=== PATIENT | female | born 1980 | race Asian ===

== ENCOUNTER → 2020-09-08 | Outpatient (CLI) | payer OTHER ==
[~2020-09-08] MED LIST: IBUP80TA PO; MAPA500T2 PO; PERCOCET PO; PREN29TA4 PO
--- NOTE | 2020-09-08 10:34 | REP ---
INDICATION: ANATOMY COMPARISON: None. TECHNIQUE: Transabdominal obstetrical ultrasound with color Doppler evaluation. FINDINGS: Examination demonstrates a single live intrauterine in variable presentation. motion is identified by technologist. Placenta is noted anterior and grade 1 without evidence for placenta previa or abruption. Amniotic fluid volume is normal. Cervix measures 4.2 cm in length and appears closed.. Gestational age by current measurements 17 weeks 2 days with SANDRA 02/14/2021. FHR equals 132 beats per minute. BPD: 3.7 cm seventeen weeks 1 day HC: 13.7 cm 17 weeks 1 day AC: 11.8 cm 17 weeks 4 days FL: 2.5 cm 17 weeks 4 days HL: 2.3 cm 17 weeks 1 day HC/AC: 1.16 Estimated weight 199 grams (58thpercentile). Anatomical assessment demonstrates normal structures including cranium, choroid plexus, cavum, cerebellum/posterior fossa, facial features, lungs, ventricular outflow tracts, diaphragm, stomach, cord insertion/three-vessel cord, kidneys/bladder, spine, and extremities. IMPRESSION: Single live intrauterine in variable presentation demonstrating appropriate estimated weight. Limited evaluation of the four-chamber heart. Remainder of the anatomical assessment is complete and normal. <Electronically signed by Woody Saenz > 09/08/20 [id number]
== END ==
LOC: M WHC 08:18
PROVIDERS: ATTEND Advanced Practice Midwife
DX: Z34.92 Encounter for supervision of normal pregnancy, unspecified, second trimester (principal); Z3A.17 17 weeks gestation of pregnancy

== ENCOUNTER → 2020-09-27 | Outpatient (CLI) | payer OTHER ==
[2020-09-27 10:59] LABS: HEMATOCRIT 38.3 % (36.0-47.0); HEMOGLOBIN 12.3 g/dl (12.0-15.5); MEAN CORPUSCULAR HEMOGLOBIN 29.4 pg (27.0-33.0); MEAN CORPUSCULAR HGB CONC 32.1 g/dl (32.0-36.5); MEAN CORPUSCULAR VOLUME 91.6 fl (80.0-96.0); PLATELET COUNT, AUTOMATED 212 10^3/uL (150-450); RED BLOOD COUNT 4.18 10^6/uL (4.00-5.40)
[2020-09-27 12:23] LABS: CHLAMYDIA DNA AMPLIFICATION NEGATIVE (NEGATIVE); GC DNA AMPLIFICATION NEGATIVE (NEGATIVE)
[2020-09-27 12:57] LABS: HEPATITIS C VIRUS ABY INDEX 0.1 INDEX (<0.8); HIV 1&2 SCREEN CENTAUR NEGATIVE (NEGATIVE)
== END ==
LOC: M WHC 07:56
PROVIDERS: ATTEND Obstetrics & Gynecology
DX: Z34.92 Encounter for supervision of normal pregnancy, unspecified, second trimester (principal); Z3A.20 20 weeks gestation of pregnancy

== ENCOUNTER → 2020-10-05 | Outpatient (CLI) | payer OTHER ==
--- NOTE | 2020-10-05 09:32 | REP ---
INDICATION: F/U ANATOMY. "Known SANDRA" February 14, 2021, expected gestational age 21 weeks 1 day. COMPARISON: Comparison sonography 08 September 2020.. TECHNIQUE: Transabdominal obstetric sonography. FINDINGS: Scanning through the gravid uterus demonstrates a viable single intrauterine gestation in cephalic lie. motion is observed and heart rate is recorded at 152 beats per minute. A anteroseptal and 0 placenta is seen, grade 1, without evidence of placenta previa. Closed cervical length is measured at 4.0 cm transabdominally. No extrauterine abnormality is observed. Amniotic fluid is subjectively normal. No abnormality is observed. The following anatomic structures are identified today and felt to be unremarkable: cranium and intracranial contents, facial profile, four-chamber heart with left and right ventricular outflow tract views, left-sided stomach, abdominal wall cord insertion, right and left kidney, urinary bladder, three-vessel cord. In conjunction with the prior study, anatomic survey is felt to be complete.. Biometry chart: BPD 5.1 cm, 21 weeks 3 days Head circumference 18.5 cm, 20 weeks 6 days Abdominal circumference 17.1 cm, 22 weeks 0 days Femur length 3.4 cm, 20 weeks 5 days Humeral length 3.2 cm, 20 weeks 4 days HC AC ratio normal 1.09 Cephalic index normal 0.77 Estimated weight 421 g, 0 lb 14 oz, 59th percentile for 21 weeks 1 day IMPRESSION: Viable single intrauterine gestation at 21 weeks 1 days by today's composite sonographic criteria. SANDRA by today's sonography February 14, 2021. No complication identified. Appropriate interval growth. Anatomic survey is felt to be complete in conjunction with the prior study. <Electronically signed by Jimmie Pace > 10/05/20 [id number]
== END ==
LOC: M WHC 08:30
PROVIDERS: ATTEND Obstetrics & Gynecology
DX: Z34.92 Encounter for supervision of normal pregnancy, unspecified, second trimester (principal); Z3A.21 21 weeks gestation of pregnancy

== ENCOUNTER → 2020-10-18 | Outpatient (REF) | payer OTHER ==
[2020-10-18 14:53] LABS: ALBUMIN 2.7 GM/DL (3.2-5.2); ALT/SGPT 35 U/L (12-78); BILIRUBIN,TOTAL 0.5 MG/DL (0.2-1.0); BLOOD UREA NITROGEN 8 MG/DL (7-18); CALCIUM LEVEL 8.9 MG/DL (8.5-10.1); CARBON DIOXIDE LEVEL 28 MEQ/L (21-32); CHLORIDE LEVEL 105 MEQ/L (98-107); CREATININE FOR GFR 0.52 MG/DL (0.55-1.30); GLOMERULAR FILTRATION RATE > 60.0 (>60); GLUCOSE, FASTING 78 MG/DL (70-100); POTASSIUM SERUM 4.5 MEQ/L (3.5-5.1); SODIUM LEVEL 138 MEQ/L (136-145); TOTAL PROTEIN 6.6 GM/DL (6.4-8.2)
== END ==
LOC: M SFHCPLAZ 10:01
PROVIDERS: ATTEND Internal Medicine Infectious Disease
DX: B18.1 Chronic viral hepatitis B without delta-agent (principal)

== ENCOUNTER → 2020-10-25 | Outpatient (REF) | payer OTHER | LOC: M PLALAB 03:14 | PROVIDERS: ATTEND Obstetrics & Gynecology | DX: Z3A.24 24 weeks gestation of pregnancy (principal) ==

== ENCOUNTER 2020-10-29 11:48 | Observation (INO) | payer OTHER ==
[~2020-10-29] VITALS: Ht 157.5 cm; Wt 66.3 kg
--- NOTE | 2020-10-29 13:14 | HPEPDOC ---
General Date of Admission Date of Service: Oct 29, 2020 Attending Physician: TYRESE BAZAN MD Chief Complaint The patient is a 39-year-old female admitted with a reason for visit of Pyelonephritis. Source: Recording Clerk Exam Limitations: Language barrier History of Present Illness Subjective: HPI limited by language barrier as pt speaks Mandarin. Had lead custodian #[id number] assisting with translation at 11:19 am today (10/29/20). Much of her past medical history has been obtained by chart review. Pt is a 39 year old female who is at 24 4/7 weeks gestation with PMH of chronic hepatitis B (being treated by ID with Tenofovir) who presented to the outpatient OB floor due to dysuria, flank pain, and fever. Also admits to headache, chills, subjective fever. She states that her dysuria initially started one week ago and her headache, chills, and subjective fever started two days ago on 10/27/20. When her dysuria initially started, she presented to her OB and was prescribed abx. Denies any prior hx of UTI or pyelonephritis. She also reports one episode of 2 days of dark colored vaginal discharge one month ago that has since resolved. Denies any hematuria. Hospitalist team was consulted for admission due to sepsis and need for IV abx and further work up. In regards to her chronic hepatitis B, pt is being seen by Dr. Quintana, [facility]. She is being treated with Tenofovir disoproxil fumarate 300 mg PO daily. Her last visit to ID was on 10/18/20 at which time her hep B DNA viral load was 119,000,000. She has 2 other children who are both hep B negative and born via . Home Medications Scheduled Cefdinir (Cefdinir) 300 Mg Capsule, 1 CAP PO BID, (Reported) Tenofovir Disoproxil Fumarate (Viread) 300 Mg Tablet, 1 TAB PO DAILY, (Reported) Scheduled PRN Acetaminophen (Acetaminophen) 500 Mg Tablet, 1 TAB PO Q8HP PRN for PAIN OR FEVER Allergies Coded Allergies: shellfish derived (Verified Allergy, Intermediate, 10/29/20) can eat the meat out of shell fish but can not touch shell allergic reaction swollen lips without resp issues Past Medical History Medical History Chronic hepatitis B, being treated with Tenofovir. Surgical History x2 Social History * Smoker: Denies Alcohol: Denies Drugs: denies A-FIB/CHADSVASC A-FIB History Current/History of A-Fib/PAF?: No Review of Systems Constitutional: Reports: Chills, Fever (subjective) ENT: Reports: Head Aches Gastrointestinal: Denies: Abdominal Pain Genitourinary: Reports: Dysuria, Other Symptoms (+Flank pain); Denies: Hematuria Physical Examination General Exam: Positive: Alert, Cooperative, No Acute Distress Eye Exam: Positive: Conjunctiva & lids normal, EOMI; Negative: Sclera icteric ENT Exam: Positive: Atraumatic Chest Exam: Positive: Clear to auscultation, Normal air movement; Negative: Rales, Rhonchi Heart Exam: Positive: Rate Normal, Regular Rhythm, Normal S1, Normal S2; Negative: Gallops, Murmurs, Rubs Abdomen Exam: Positive: Normal bowel sounds; Negative: Tenderness Neuro Exam: Positive: Normal Speech, Cranial Nerves 3-12 NL Psych Exam: Positive: Mental status NL, Mood NL Vital Signs See below. Last vitals done on 10/29/20 at 8:40 am. Temp 96.8, pulse 108, respiratory rate 22, BP 113/53. Assessment/Plan Assessment/Plan: Pt is a 39 year old female who is at 24 4/7 weeks gestation with PMH of chronic hepatitis B (being treated by ID with Tenofovir) who presented to the outpatient OB floor due to dysuria, flank pain, and fever. She was found to have fever and elevated lactic acid so she was admitted for observation for UTI vs pyelonephritis tx with IV abx. #Sepsis 2/2 UTI vs pyelonephritis - Pt UA suggests UTI. Possible pyelonephritis suspected due to reported flank pain. Pt is more predisposed to UTI/pyelonephritis due to her current 2nd trimester . - According to initial intake vitals, pt meets severe sepsis SIRS criteria due to temp >100.4, HR >90, RR>20, and lactic acidosis with lactic acid level at 2.2. Her 4 hr f/u lactic acid is 0.9. Her lactic acidosis is not very concerning as she has many risk factors that could elevate her lactic acid levels (see below). - qSOFA score is 1 due to respiratory rate >=22. Low risk. - Will start pt on Ceftriaxone 1 gm IV Q24H. Pt was start Ceftriaxone here by OB and reports improvement in sx so will continue Ceftriaxone. - Will continue pt on IV normal saline. - Will continue to monitor CBC and BMP. - Pt being given acetaminophen 650 mg PO for fever and pain. #UTI vs pyelonephritis - Pt UA suggests UTI. Possible pyelonephritis suspected due to reported flank pain. Pt is more predisposed to UTI/pyelonephritis due to her current 2nd trimester . - Pt has been started on Ceftriaxone 1 gm IV Q24H. #Lactic acidosis - Lactic acid elevated at 2.2. 4hr f/u was 0.9. - Elevated lactic acid is to be expected in this patient due to her hx of chronic hep B infection. This would cause her liver to have decreased ability to process toxic metabolites such as lactic acid. Pt is also on Tenofovir for tx of hep B and Tenofovir can cause lactic acidosis. - Will continue to hydrate pt with normal saline. #Chronic hepatitis B infection - Pt is following up with ID, Dr. Quintana, in regards to chronic hepatitis B. She is currently being treated with Tenofovir. - Will have pt f/u with Dr. Quintana after discharge. #DVT prophylaxis - Teds and sequentials. Disposition: Pt is receiving IV ceftriaxone 1 gm IV. Anticipate discharge in 24 hrs pending clinical improvement. Plan / VTE VTE Prophylaxis Ordered?: Yes (Teds and sequentials) GME ATTESTATION GME ATTESTATION My faculty preceptor for this patient encounter was physically present during the encounter and was fully available. All aspects of the patient interview, examination, medical decision making process, and medical care plan development were reviewed and approved by the faculty preceptor. The faculty preceptor is aware and concurs with the plan as stated in the body of this note and will attest to such by his/her cosignature. ATTENDING NOTE I, Tyrese Bazan MD, have independently examined this patient and performed my own physical exam, as well as reviewed the documentation and edited where nece ssary. I have discussed in detail with the resident / student the findings and plan of treatment as documented by the resident / student and edited their note. I agree with their findings and treatment plan and have edited their documentation. Nancy LO OMS-3 Oct 29, 2020 13:14 TYRESE BAZAN MD Nov 02, 2020 09:28
[2020-10-29 13:35] VITALS: BP 112/60
[2020-10-29] MEDS ORDERED: ACETAMINOPHEN TAB 650MG DOSE (2X325MG) PO PRN (14:00)
[2020-10-29] MEDS: NS 1,000 ML IV SCH ×2 (14:00→19:42)
[2020-10-29] MEDS ORDERED: TENO30TAB PO (14:46)
[2020-10-29] MEDS ORDERED: CEFD1CAP8 PO (14:46)
[2020-10-29 16:00] VITALS: BP 102/48
[2020-10-29 20:00] VITALS: BP 98/51
[2020-10-29] MEDS: ACETAMINOPHEN 650MG ER TAB (TYLENOL ARTHRITIS) PO PRN (22:52)
[2020-10-29 23:58] VITALS: BP 91/52
[2020-10-30] VITALS (10 sets, daily range): BP systolic 85–104; BP diastolic 43–59
[2020-10-30] MEDS ORDERED: NS 1,000 ML IV ONE (00:55)
[2020-10-30] MEDS ORDERED: cefTRIAXone SOD 1 GM in D5W MINI-BAG PLUS 50 ML IV SCH (02:00)
[2020-10-30] MEDS: NS 1,000 ML IV SCH (02:20)
[2020-10-30 08:47] LABS: MEAN CORPUSCULAR HEMOGLOBIN 29.8 pg (27.0-33.0); MEAN CORPUSCULAR HGB CONC 32.1 g/dl (32.0-36.5); MEAN CORPUSCULAR VOLUME 92.7 fl (80.0-96.0); PLATELET COUNT, AUTOMATED 139 10^3/uL (150-450); RED BLOOD COUNT 3.02 10^6/uL (4.00-5.40); WHITE BLOOD COUNT 5.9 10^3/uL (4.0-10.0)
[2020-10-30] MEDS: ACETAMINOPHEN 650MG ER TAB (TYLENOL ARTHRITIS) PO PRN ×2 (09:01→20:39)
[2020-10-30] MEDS ORDERED: MAALOX 30 ML SUSP *UDC PO PRN (09:10)
[2020-10-30] MEDS ORDERED: ONDANSETRON 4MG/2ML VIAL IV PRN (09:10)
[2020-10-30] MEDS ORDERED: NS 1,000 ML IV SCH (09:15)
[2020-10-30] MEDS ORDERED: PILL CUTTER 1 EACH XX PRN (09:20)
[2020-10-30 09:23] LABS: BLOOD UREA NITROGEN 5 MG/DL (7-18); CALCIUM LEVEL 6.8 MG/DL (8.5-10.1); CARBON DIOXIDE LEVEL 22 MEQ/L (21-32); CHLORIDE LEVEL 111 MEQ/L (98-107); CREATININE FOR GFR 0.46 MG/DL (0.55-1.30); GLOMERULAR FILTRATION RATE > 60.0 (>60); GLUCOSE, FASTING 95 MG/DL (70-100); POTASSIUM SERUM 3.2 MEQ/L (3.5-5.1); SODIUM LEVEL 142 MEQ/L (136-145)
[2020-10-30] MEDS: FAMOTIDINE 20 MG TAB PO SCH ×2 (10:04→20:39)
[2020-10-30] MEDS: D5W/0.45% SODIUM CHLORIDE 1,000 ML IV SCH ×2 (11:17→20:38)
[2020-10-30] MEDS ORDERED: POTASSIUM CHLORIDE 10 MEQ SR TABLET PO ONE (11:30)
--- NOTE | 2020-10-30 11:46 | IPNPDOC ---
Date Seen The patient was seen on 10/30/20. Progress Note SUBJECTIVE: Patient was seen and examined this morning. Bulgarian is the patients second language and therefore an lang interpreter #[id number] was contacted for assistance in patient communication. Overnight the patient was noted to be febrile with a Tmax of 101.1. Additionally she was noted to have worsening right flank pain with nausea and vomiting. Patient states that she did initially feel better yesterday however feels nauseas and has chills this morning OBJECTIVE PHYSICAL EXAMINATION: VITAL SIGNS: Please see below. GENERAL: Awake, alert, and oriented. Does not appear to be in acute distress. Is ill appearing. HEENT: Atraumatic, normocephalic. Eyes are nonicteric. Trachea is midline. Mucou s membranes are pink and moist CARDIOVASCULAR: Normal S1, S2. Tachycardic rate. Regular rhythm. No clicks, rubs, or murmurs RESPIRATORY: Clear vesicular breath sounds bilaterally. Slightly tachypneic. No wheezes, rhonchi, or rales. Symmetric chest expansion. ABDOMINAL: Soft, otherwise no palpable masses. Midepigastric tenderness. No rebound tenderness or guarding. Right flank tenderness/pain. No suprapubic tenderness EXTREMITIES: No edema. Full and equal pulses in bilateral upper and lower extremities NEUROLOGICAL: No focal neurological deficits PSYCHOLOGICAL: Mood and affect appear appropriate LABORATORY DATA, IMAGING STUDIES, MICROBIOLOGY: Please see below. DVT prophylaxis ordered?: Mechanical ASSESSMENT AND PLAN: Patient is a 39 year old at 24 4/7 weeks gestation with past medical history significant for hepatitis B under current treatment with Tenofovir by Dr. Quintana who presented to outpatient OB with complaint of dysuria, flank pain, and fever. Patient was seen on 10/27/20 by her [facility] at which point she apparently had a UA and culture performed. She was started on Cefdinir and discharged home. On 10/29/20 patient noted continued urinary discomfort, fever, and flank pain. Patient was subsequently admitted for pyelonephritis. PROBLEMS: 1. UTI/Pyelonephritis in 2nd Trimester of -Patient had U/A and culture performed on 10/27/20 and was started on Cefdinir outpatient. She had stated that she took one dose and then presented to [facility] with worsening flank pain, fevers, and dysuria. -Will need to obtain culture data from 10/27/20 outpatient visit. U/A and culture performed at [facility] on 10/29/20 was negative for any significant growth. Unlikely that patient failed outpatient therapy with Cefdinir as she had only taken one dose. Additionally culture performed here was already negative -Will continue Rocephin. Will increase to 2 grams. -Continue IV fluid as patient has had decreased oral intake and has had emesis. Will change to D5 1/2 normal saline given hyperchloremia and hypernatremia. -Patient currently on extended release Tylenol. 2. Nausea and Vomiting -Likely multifactorial. Given her acute illness with pyelonephritis in the setting of . Additionally patient states that she does have acid reflux. -Will add Zofran prn for nausea. Pepcid and Maalox as needed for acid reflux. -Clear liquids diet until able to tolerate more 3. Hypokalemia -Likely secondary to emesis with poor oral intake. Will monitor and replete prn 4. 2nd Trimester -Patient is currently being followed by [facility] 5. Hepatitis B infection -History of chronic hepatitis B. She did appear to have elevated Hep B titers on 10/28, her last visit with Dr. Quintana. She is being managed with Tenofovir 6. DVT prophylaxis -TEDs and Sequentials DISPOSITION: Patient has remained febrile. Plan to transition to oral antibi otics and discharge once patient is afebrile for 24 hours. Anticipate D/C in 24- 48 hours VS, I&O, 24H, Fishbone Vital Signs/I&O Vital Signs Date Time Temp Pulse Resp B/P (MAP) Pulse Ox O2 Delivery O2 Flow Rate FiO2 10/30/20 06:44 97.6 109 18 104/58 (73) 97 Room Air I&O- Last 24 Hours up to 6 AM 10/30/20 05:59 Intake Total 3440 ml Output Total 1775 ml Balance 1665 ml Laboratory Data 24H LABS Laboratory Tests 2 10/30/20 07:29: Nucleated Red Blood Cells % (auto) 0.0, Anion Gap 9, Glomerular Filtration Rate > 60.0, Calcium Level 6.8L CBC/BMP Laboratory Tests 10/30/20 07:29 GME ATTESTATION GME ATTESTATION My faculty preceptor for this patient encounter was physically present during the encounter and was fully available. All aspects of the patient interview, examination, medical decision making process, and medical care plan development were reviewed and approved by the faculty preceptor. The faculty preceptor is aware and concurs with the plan as stated in the body of this note and will attest to such by his/her cosignature. ATTENDING NOTE I have seen and examined the patient. I agree with the findings and plan or care as documented in the residents note. MARY REINOSO DO Oct 30, 2020 11:46 ROMAN PAINTING MD Nov 15, 2020 22:45
[2020-10-30] MEDS ORDERED: cefTRIAXone SOD 2 GM in D5W MINI-BAG PLUS 50 ML IV SCH (14:00)
[2020-10-31] MEDS: D5W/0.45% SODIUM CHLORIDE 1,000 ML IV SCH (04:27)
[2020-10-31 06:14] VITALS: BP 95/59
[2020-10-31 07:09] LABS: HEMATOCRIT 26.4 % (36.0-47.0); HEMOGLOBIN 8.5 g/dl (12.0-15.5); MEAN CORPUSCULAR HEMOGLOBIN 29.9 pg (27.0-33.0); MEAN CORPUSCULAR HGB CONC 32.2 g/dl (32.0-36.5); PLATELET COUNT, AUTOMATED 149 10^3/uL (150-450); RED BLOOD COUNT 2.84 10^6/uL (4.00-5.40); WHITE BLOOD COUNT 6.1 10^3/uL (4.0-10.0)
[2020-10-31 07:33] LABS: BLOOD UREA NITROGEN 4 MG/DL (7-18); CALCIUM LEVEL 7.1 MG/DL (8.5-10.1); CARBON DIOXIDE LEVEL 24 MEQ/L (21-32); CHLORIDE LEVEL 108 MEQ/L (98-107); CREATININE FOR GFR 0.45 MG/DL (0.55-1.30); GLOMERULAR FILTRATION RATE > 60.0 (>60); GLUCOSE, FASTING 97 MG/DL (70-100); SODIUM LEVEL 140 MEQ/L (136-145)
[2020-10-31] MEDS: FAMOTIDINE 20 MG TAB PO SCH (09:17)
[2020-10-31] MEDS ORDERED: POTASSIUM CHLORIDE 10 MEQ SR TABLET PO ONE (10:00)
[2020-10-31] MEDS ORDERED: ACET-683 PO (10:16)
--- NOTE | 2020-10-31 11:20 | DS.PDOC ---
Discharge Summary General Date of Admission Oct 29, 2020 at 13:35 Date of Discharge 10/31/20 Discharge Summary PROCEDURES PERFORMED DURING STAY: [None]. DISCHARGE DIAGNOSES: Pyelonephritis in second trimester of Sepsis Hypokalemia Chronic hepatitis B infection. COMPLICATIONS/CHIEF COMPLAINT: Pyelonephritis. HOSPITAL COURSE: This is a 39 year old female who is at 24 4/7 weeks gestation with PMH of chronic hepatitis B (being treated by ID with Tenofovir) who presented to the outpatient OB floor due to dysuria, flank pain, and fever. She stated that her dysuria initially started one week ago and her headache, chills, and subjective fever started on 10/27/20. Patient had U/A and culture performed on 10/27/20 and was started on Cefdinir outpatient. She had stated that she took one dose and then presented to [facility] with worsening flank pain, fevers, and dysuria. She presented to L&D at [facility] on 10/28/20. She was febrile to 102, with elevated lactate and dirty UA. She was felt to be septic so hospitalist was consulted for admission. Renal US was suggestive of Pyelonephritis, UA was dir ty. However urine culture did not show any growth. She was treated with ceftriaxone with improvement of symptoms. She is to continue Cefdinir as outpatient. DISCHARGE MEDICATIONS: Please see below. ALLERGIES: Please see below. PHYSICAL EXAMINATION ON DISCHARGE: VITAL SIGNS: Please see below. GENERAL: Awake, alert, comfortable sitting up in bed. HEENT: NC/AT most mucous membranes NECK: Supple, no lymphadenopathy CARDIOVASCULAR EXAMINATION: S1, s2 regular, no murmur or gallop RESPIRATORY EXAMINATION: Bilateral vesicular breath sounds ABDOMINAL EXAMINATION: Soft, nontender, No CVA tenderness, movements felt. EXTREMITIES: No edema LABORATORY DATA: Please see below. IMAGING: FINDINGS: The right kidney measures 11.9 x 4.7 x 4.5 cm. The left kidney measures 10.7 x 5.3 x 4.8 cm. The kidneys are normal size. Renal cortical echogenicity is normal bilaterally. There are are no calculi on the right or the left. There is no hydronephrosis on the right or the left. There are no solid or cystic renal masses on the right or the left. No evidence of renal abscess on the right or the left. Bladder: The bladder is incompletely distended. We are unable to demonstrate ureteral jets with color Doppler ultrasound. However, there is no hydronephrosis. IMPRESSION: There is no evidence of renal mass or abscess. There is no pararenal fluid collection. There is no hydronephrosis. No renal calculus. Essentially negative ultrasound of the kidneys. The bladder is incompletely distended and cannot be further evaluated. Is noted that the patient is . The heart rate is 150 beats per minute. ACTIVITY: [As tolerated]. DIET: Regular DISCHARGE PLAN: Home DISCHARGE INSTRUCTIONS: Follow up with Obstetrics in 1 week DISCHARGE CONDITION: [Stable]. TIME SPENT ON DISCHARGE: 35 minutes. Vital Signs/I&Os Vital Signs Date Time Temp Pulse Resp B/P (MAP) Pulse Ox O2 Delivery O2 Flow Rate FiO2 10/31/20 06:14 97.9 95 18 95/59 (71) 99 Room Air I&O- Last 24 Hours up to 6 AM 10/31/20 06:00 Intake Total 785 ml Output Total 875 ml Balance -90 ml Laboratory Data Labs 24H Laboratory Tests 2 10/31/20 06:47: Nucleated Red Blood Cells % (auto) 0.0, Anion Gap 8, Glomerular Filtration Rate > 60.0, Calcium Level 7.1L CBC/BMP Laboratory Tests 10/31/20 06:47 Discharge Medications Scheduled Cefdinir (Cefdinir) 300 Mg Capsule, 1 CAP PO BID, (Reported) Tenofovir Disoproxil Fumarate (Viread) 300 Mg Tablet, 1 TAB PO DAILY, (Reported) Scheduled PRN Acetaminophen (Acetaminophen) 500 Mg Tablet, 1 TAB PO Q8HP PRN for PAIN OR FEVER Allergies Coded Allergies: shellfish derived (Verified Allergy, Intermediate, 10/29/20) can eat the meat out of shell fish but can not touch shell allergic reaction swollen lips without resp issues ROMAN PAINTING MD Oct 31, 2020 11:20
== END 2020-10-31 12:00 | disposition home or self-care (01) ==
LOC: M PED 13:35 → M MS5PR 10-30 13:50
PROVIDERS: ADMIT Internal Medicine; ATTEND Internal Medicine
DX: O23.02 Infections of kidney in pregnancy, second trimester (principal); O23.42 Unspecified infection of urinary tract in pregnancy, second trimester; O99.282 Endocrine, nutritional and metabolic diseases complicating pregnancy, second trimester; O98.412 Viral hepatitis complicating pregnancy, second trimester; Z79.899 Other long term (current) drug therapy; Z91.013 Allergy to seafood; Z3A.24 24 weeks gestation of pregnancy; E87.6 Hypokalemia
CPT/HCPCS: 36415; 76775; 80048; 80053; 81001; 83605; 85025; 85027; 87040; 87086; 96361; 96365; 96366; 96375; J0696; J2405; U0002

== ENCOUNTER → 2020-11-22 | Outpatient (REF) | payer OTHER ==
[~2020-11-22] MED LIST changes: +ACET-683 PO; +CEFD1CAP8 PO; +TENO30TAB PO
[2020-11-22 14:20] LABS: HEMATOCRIT 35.6 % (36.0-47.0); HEMOGLOBIN 11.5 g/dl (12.0-15.5); MEAN CORPUSCULAR HEMOGLOBIN 30.2 pg (27.0-33.0); MEAN CORPUSCULAR HGB CONC 32.3 g/dl (32.0-36.5); MEAN CORPUSCULAR VOLUME 93.4 fl (80.0-96.0); PLATELET COUNT, AUTOMATED 186 10^3/uL (150-450); RED BLOOD COUNT 3.81 10^6/uL (4.00-5.40); WHITE BLOOD COUNT 5.9 10^3/uL (4.0-10.0)
== END ==
LOC: M PLALAB 08:01
PROVIDERS: ATTEND Obstetrics & Gynecology
DX: Z34.93 Encounter for supervision of normal pregnancy, unspecified, third trimester (principal); Z3A.28 28 weeks gestation of pregnancy

== ENCOUNTER → 2020-11-29 | Outpatient (CLI) | payer OTHER | LOC: M LAB 08:39 | PROVIDERS: ATTEND Obstetrics & Gynecology | DX: O99.810 Abnormal glucose complicating pregnancy (principal) ==

== ENCOUNTER → 2020-12-06 | Outpatient (REF) | payer OTHER ==
[2020-12-06 14:31] LABS: ALBUMIN 2.7 GM/DL (3.2-5.2); BILIRUBIN,DIRECT 0.1 MG/DL (0.0-0.2); BILIRUBIN,TOTAL 0.5 MG/DL (0.2-1.0); TOTAL PROTEIN 6.8 GM/DL (6.4-8.2)
[2020-12-07 20:07] LABS: HBV 4940 IU/mL (.); log10 HBV IU/mL 3.694 (.)
== END ==
LOC: M SFHCPLAZ 10:39
PROVIDERS: ATTEND Internal Medicine Infectious Disease
DX: O98.413 Viral hepatitis complicating pregnancy, third trimester (principal); Z3A.00 Weeks of gestation of pregnancy not specified

== ENCOUNTER → 2021-01-05 | Outpatient (REF) | payer OTHER ==
[2021-01-05 13:35] LABS: APPEARANCE, URINE HAZY (CLEAR); BACTERIA, URINE AUTO 1+ (NEGATIVE); BILIRUBIN, URINE AUTO NEGATIVE (NEGATIVE); BLOOD, URINE BLOOD 2+ (NEGATIVE); COLOR, URINE YELLOW (YELLOW); GLUCOSE, URINE (UA) AUTO NEGATIVE (NEGATIVE); KETONE, URINE AUTO NEGATIVE (NEGATIVE); LEUKOCYTE ESTERASE, URINE AUTO NEGATIVE (NEGATIVE); MUCUS, URINE SMALL (NEGATIVE); NITRITE, URINE AUTO NEGATIVE (NEGATIVE); PROTEIN, URINE AUTO NEGATIVE (NEGATIVE); RBC, URINE AUTO 5 /HPF (0-3); SQUAMOUS EPITHELIAL CELL UR AU 10 /HPF (0-6); UROBILINOGEN, URINE AUTO 0.2 mg/dL (0.0-2.0); WBC, URINE AUTO 1 /HPF (0-3)
== END ==
LOC: M SFHCWAGY 12:49
PROVIDERS: ATTEND Advanced Practice Midwife
DX: R30.0 Dysuria (principal)

== ENCOUNTER → 2021-01-17 | Outpatient (REF) | payer OTHER ==
[2021-01-17 13:41] LABS: BASO % 0.2 % (0.0-1.0); EOS % 0.5 % (0.0-3.0); LYMPH # 1.2 10^3/uL (1.5-5.0); LYMPH % 22.1 % (24.0-44.0); MEAN CORPUSCULAR HEMOGLOBIN 29.1 pg (27.0-33.0); MEAN CORPUSCULAR HGB CONC 31.6 g/dl (32.0-36.5); MONO # 0.4 10^3/uL (0.0-0.8); MONO % 6.3 % (2.0-8.0); NEUTROPHILS # 3.9 10^3/uL (1.5-8.5); NEUTROPHILS % 70.4 % (36.0-66.0); PLATELET COUNT, AUTOMATED 186 10^3/uL (150-450); RED BLOOD COUNT 4.13 10^6/uL (4.00-5.40); WHITE BLOOD COUNT 5.5 10^3/uL (4.0-10.0)
[2021-01-17 14:20] LABS: ALBUMIN 2.7 GM/DL (3.2-5.2); ALT/SGPT 18 U/L (12-78); BILIRUBIN,TOTAL 0.6 MG/DL (0.2-1.0); BLOOD UREA NITROGEN 10 MG/DL (7-18); CALCIUM LEVEL 8.5 MG/DL (8.5-10.1); CARBON DIOXIDE LEVEL 25 MEQ/L (21-32); CHLORIDE LEVEL 106 MEQ/L (98-107); CREATININE FOR GFR 0.46 MG/DL (0.55-1.30); GLOMERULAR FILTRATION RATE > 60.0 (>60); GLUCOSE, FASTING 83 MG/DL (70-100); SODIUM LEVEL 138 MEQ/L (136-145); TOTAL PROTEIN 6.8 GM/DL (6.4-8.2)
[2021-01-19 15:08] LABS: HBV 350 IU/mL (.); log10 HBV IU/mL 2.544 (.)
== END ==
LOC: M SFHCPLAZ 10:40
PROVIDERS: ATTEND Internal Medicine Infectious Disease
DX: B18.1 Chronic viral hepatitis B without delta-agent (principal)

== ENCOUNTER → 2021-01-18 | Outpatient (REF) | payer OTHER | LOC: M SFHCWAGY 16:50 | PROVIDERS: ATTEND Specialist | DX: Z34.83 Encounter for supervision of other normal pregnancy, third trimester (principal) ==

== ENCOUNTER → 2021-02-03 | Outpatient (CLI) | payer OTHER ==
[~2021-02-03] MED LIST changes: +GNP28TAB2; +[UNRECOGNIZED DRUG - REMARK]
== END ==
LOC: M LABSMTC 09:36
PROVIDERS: ATTEND Anesthesiology
DX: Z01.818 Encounter for other preprocedural examination (principal); Z11.52 Encounter for screening for COVID-19

== ENCOUNTER 2021-02-08 07:30 | Inpatient (IN) | payer OTHER ==
[~2021-02-08] VITALS: Ht 160 cm; Wt 73.4 kg
[2021-02-08] VITALS (7 sets, daily range): BP systolic 117–134; BP diastolic 65–77
[2021-02-08] MEDS ORDERED: COLA100C5 PO (08:09)
[2021-02-08 08:33] LABS: HEMATOCRIT 37.7 % (36.0-47.0); HEMOGLOBIN 12.2 g/dl (12.0-15.5); MEAN CORPUSCULAR HEMOGLOBIN 29.5 pg (27.0-33.0); MEAN CORPUSCULAR HGB CONC 32.4 g/dl (32.0-36.5); MEAN CORPUSCULAR VOLUME 91.3 fl (80.0-96.0); PLATELET COUNT, AUTOMATED 179 10^3/uL (150-450); RED BLOOD COUNT 4.13 10^6/uL (4.00-5.40); WHITE BLOOD COUNT 4.6 10^3/uL (4.0-10.0)
[2021-02-08] MEDS ORDERED: LR 1,000 ML IV SCH ×2 (08:40→11:45)
[2021-02-08] MEDS: PRENATAL VITAMINS CHEWABLE TABLET PO SCH (09:00)
[2021-02-08] MEDS ORDERED: BICITRA 30ML SOLN UDC PO ONE (09:00)
[2021-02-08] MEDS ORDERED: ceFAZolin SOD 2 GM in IV 1 EA IV ONE (09:00)
[2021-02-08] MEDS ORDERED: LACTATED RINGER'S 1000 ML IV ONE (09:00)
[2021-02-08] MEDS ORDERED: MORPHINE PRES-FREE INJ 10 MG/10 ML VIAL (J2274) As Ordered ONE (09:13)
[2021-02-08] MEDS ORDERED: OXYTOCIN INJ 10 UNITS/ML VIAL (J2590) As Ordered ONE (09:14)
[2021-02-08] MEDS ORDERED: NALBUPHINE HCL 10 MG/ML AMP (J2300) IV PRN (10:20)
[2021-02-08] MEDS ORDERED: diphenhydrAMINE 50MG/ML VIAL (J1200) IV PRN (10:20)
[2021-02-08] MEDS ORDERED: NALOXONE INJ 0.4MG/1ML VIAL (J2310 PER 1MG) IV PRN ×2 (10:20)
[2021-02-08] MEDS ORDERED: METOCLOPRAMIDE INJ 10MG/2ML VIAL (J2765 PER 1) IV PRN ×2 (10:20→11:45)
[2021-02-08] MEDS ORDERED: ONDANSETRON 4MG/2ML VIAL As Ordered ONE (10:54)
[2021-02-08] MEDS ORDERED: dexameTHASONE 4 MG/ML 1ML VIAL (J1100 PER 1MG) As Ordered ONE (10:55)
[2021-02-08] MEDS ORDERED: KETOROLAC 60MG 2ML VIAL As Ordered ONE (10:55)
[2021-02-08] MEDS ORDERED: ePHEDrine SULFATE 25 MG/5 ML(5MG/ML) SYRINGE As Ordered ONE (10:59)
[2021-02-08] MEDS ORDERED: MEASLES,MUMPS,RUBELLA VACCINE INJ (MMR-II) (90707) SC SCH (11:10)
[2021-02-08] MEDS ORDERED: PERCOCET 5MG/325MG TAB PO PRN ×3 (11:10→11:45)
[2021-02-08] MEDS ORDERED: OXYTOCIN DRIP 30 UNITS in IV 1 EA IV SCH (11:10)
[2021-02-08] MEDS ORDERED: RHOGAM 300 MCG (1500 IU) INJ (J2790) IM SCH (11:10)
[2021-02-08] MEDS: LR 1,000 ML IV SCH ×2 (11:10→23:16)
[2021-02-08] MEDS ORDERED: SIMETHICONE 80MG CHEW TAB PO PRN (11:10)
[2021-02-08] MEDS ORDERED: ONDANSETRON 4MG/2ML VIAL IV PRN ×2 (11:10→11:45)
[2021-02-08] MEDS ORDERED: DOCUSATE SODIUM 100MG CAPSULE PO PRN (11:10)
--- NOTE | 2021-02-08 11:15 | ROOPDOC ---
[facility] Report Of Operation Report of Operation DATE OF PROCEDURE: 02/08/21 Report of operation Preoperative diagnosis:39 weeks ,prior x 2 Postoperative diagnosis: same Procedure: Repeat low transverse section. Surgeon: Brady Lynn M.D. Asst.: Rosalind Palacios MD EBL: 500 ml. Urine output: 100 mL's. Findings: 8 lbs. 4 oz. male infant, 's 7 and 9 g normal uterus, fallopian tubes, ovaries. Operative summary: Patient taken to the operating room where spinal anesthesia was induced. She was prepped draped sterile fashion in the supine position. A Alva catheter was placed. A Pfannenstiel skin incision was made with scalpel. Fascia was incised and extended bilaterally. The peritoneal cavity was entered. A Mobius retractor was placed. A bladder flap was created. A curvilinear incision was made in lower uterine segment until Clear fluid was noted. The incision was extended manually. The infant was delivered from the vertex position without difficulty. Cord was doubly clamped and cut. The infant was handed waiting nurses. The placenta was expressed. Uterus was closed with O-Vicryl in a running locked fashion. A second imbricating layer of Vicryl was placed. Peritoneum was closed with 2-0 Vicryl a running fashion. Fascia was closed with 0 Vicryl in running fashion. Skin was closed 4-0 Monocryl subcuticular sutures. Sponge, instrument and needle counts were correct. Rosalind Palacios MD, assisted with all aspects of the procedure. She helped closeeach layer of the incision and deliver the fetus. BRADY LYNN MD Feb 08, 2021 11:14
[2021-02-08] MEDS ORDERED: OXYTOCIN 30 UNITS IN 0.9% NaCl 500ML IV BAG (J2590) As Ordered ONE (11:40)
[2021-02-08] MEDS ORDERED: fentaNYL 100 MCG/2 ML INJECTION (J3010) IV PRN (11:45)
[2021-02-08] MEDS ORDERED: METHYLERGONOVINE MALEATE 0.2 MG/ML VIAL (J2210) IM ONE (16:50)
[2021-02-08] MEDS: KETOROLAC 30 MG/ML 1ML VIAL IV SCH ×2 (17:16→22:31)
[2021-02-09 02:00] VITALS: BP 100/65
[2021-02-09] MEDS: KETOROLAC 30 MG/ML 1ML VIAL IV SCH (04:45)
[2021-02-09 06:00] VITALS: BP 107/63
[2021-02-09 07:04] LABS: HEMATOCRIT 28.8 % (36.0-47.0); MEAN CORPUSCULAR HEMOGLOBIN 30.1 pg (27.0-33.0); MEAN CORPUSCULAR HGB CONC 32.3 g/dl (32.0-36.5); MEAN CORPUSCULAR VOLUME 93.2 fl (80.0-96.0); PLATELET COUNT, AUTOMATED 134 10^3/uL (150-450); RED BLOOD COUNT 3.09 10^6/uL (4.00-5.40); WHITE BLOOD COUNT 7.5 10^3/uL (4.0-10.0)
[2021-02-09 07:08] LABS: HEMOGLOBIN 9.3 g/dl (12.0-15.5)
[2021-02-09] MEDS: LR 1,000 ML IV SCH ×2 (07:27→16:08)
[2021-02-09] MEDS ORDERED: LR 500 ML IV ONE (08:20)
[2021-02-09] MEDS ORDERED: INFLUENZA QUADRIVALENT PF VACCINE 0.5ML SYRINGE IM ONE (09:00)
[2021-02-09] MEDS: PRENATAL VITAMINS CHEWABLE TABLET PO SCH (09:44)
[2021-02-09 10:29] VITALS: BP 104/64
--- NOTE | 2021-02-09 10:38 | IPNPDOC ---
Progress Note Date of Service: Feb 09, 2021 Day#: 1 Progress Note PPD/POD 1 SUBJECT: Hernandez is a 40yo [id number] s/p uncomplicated RLTCS on 02/08 for history of 2 prior sections, doing well /post-op day #1. She has been ambulating without lightheadedness, was unable to meet due to void last night so lemons replaced (urine appears dark this morning) and tolerating regular diet without n/v. Breast feeding without issue. Reports lochia is like a normal period. Pain well controlled. No f/c/n/v/CP/SOB. OBJECTIVE: VITAL SIGNS: Within normal limits, afebrile. Alert and oriented times three. Abdomen: Fundus firm at U-2. Soft, appropriately tender to palpation. Pressure dressing is clean/dry/intact without strikethrough. Extremities: no pain with palpation of calves Labs: pre-op H/H: 12.2/37.7 post-op H/H: 9.3/28.8 ASSESSMENT: Hernandez is a 40yo [id number] s/p uncomplicated RLTCS on 02/08 for history of 2 prior sections, doing well /post-op day #1 Vitals within normal limits, afebrile, hemodynamically stable with no evidence of infection. PLAN: 1. Routine /post-op care 2. Remove lemons 12hr after insertion (this afternoon) with 6hr due to void 3. 500ml LR IVF bolus ordered for dark appearing urine, continue maintenance IVF 4. Percocet and Motrin for pain. Colace for bowel regimen. 5. Encourage breast feeding and ambulation. 6. Regular diet 7. Possible discharge tomorrow if meeting all milestones 8. Remove pressure dressing later today and ok to shower Rosalind Palacios MD VS, I&O, 24H, Sanjiv Vital Signs/I&O Vital Signs Date Time Temp Pulse Resp B/P (MAP) Pulse Ox O2 Delivery O2 Flow Rate FiO2 02/09/21 06:00 97.5 78 17 107/63 (78) 97 Room Air I&O- Last 24 Hours up to 6 AM 02/09/21 06:00 Intake Total 4225 ml Output Total 2675 ml Balance 1550 ml Laboratory Data 24H LABS Laboratory Tests 2 02/09/21 06:46: Nucleated Red Blood Cells % (auto) 0.0 CBC/BMP Laboratory Tests 02/09/21 06:46 Rosalind Palacios MD Feb 09, 2021 10:38
[2021-02-09] MEDS: IBUPROFEN 800 MG TAB PO SCH ×2 (12:48→20:43)
[2021-02-09 14:00] VITALS: BP 134/60
[2021-02-09 17:53] VITALS: BP 115/76
[2021-02-09 22:00] VITALS: BP 138/78
[2021-02-10 02:00] VITALS: BP 130/74
[2021-02-10] MEDS: IBUPROFEN 800 MG TAB PO SCH ×2 (05:01→12:31)
[2021-02-10 06:00] VITALS: BP 133/82
[2021-02-10] MEDS ORDERED: OXYC1TAB23 PO (06:44)
[2021-02-10] MEDS ORDERED: IBUP80TA PO (06:44)
--- NOTE | 2021-02-10 06:50 | DS.PDOC ---
Discharge Summary General Date of Admission Feb 08, 2021 at 07:30 Date of Discharge Feb 10, 2021 Discharge Summary PROCEDURES PERFORMED DURING STAY: section. ADMITTING DIAGNOSES: 1. 39 weeks, section x2. DISCHARGE DIAGNOSES: 1. Same. COMPLICATIONS/CHIEF COMPLAINT: Previous Section. HISTORY OF PRESENT ILLNESS: 40-year-old G3, P2 female at 39 weeks gestation presents for repeat section. She has a history of 2 prior cesareans.. HOSPITAL COURSE: 40-year-old G3, P2 female 39 weeks gestation presents for repeat section. She has a history of 2 prior sections. On February 08, 2021 she underwent repeat section. There were no complications. Her postoperative course was unremarkable. She had adequate return of bladder and bowel function. She was deemed stable for discharge on postop day #2. DISCHARGE MEDICATIONS: Please see below. ALLERGIES: Please see below. PHYSICAL EXAMINATION ON DISCHARGE: VITAL SIGNS: Please see below. GENERAL: No apparent distress HEENT: NCAT NECK: Within normal limits CARDIOVASCULAR EXAMINATION: RRR RESPIRATORY EXAMINATION: Clear to auscultation ABDOMINAL EXAMINATION: Nontender, fundus firm, dressing clean dry intact EXTREMITIES: Nontender LABORATORY DATA: Please see below. PROGNOSIS: Good ACTIVITY: As tolerated. DIET: Regular DISCHARGE PLAN: Home DISPOSITION: . DISCHARGE INSTRUCTIONS: 1. Discharge home today 2. Instructions reviewed 3. Pain management ordered 4. Follow-up office 2 weeks DISCHARGE CONDITION: Stable. TIME SPENT ON DISCHARGE: Greater than 10 minutes. Vital Signs/I&Os Vital Signs Date Time Temp Pulse Resp B/P (MAP) Pulse Ox O2 Delivery O2 Flow Rate FiO2 02/10/21 06:00 97.9 63 18 133/82 (99) 02/10/21 02:00 99 Room Air I&O- Last 24 Hours up to 6 AM 02/10/21 06:00 Intake Total 500 ml Output Total 1900 ml Balance -1400 ml Discharge Medications Scheduled Docusate Sodium (Colace) 100 Mg Capsule, 1 CAP PO DAILY, (Reported) Ibuprofen (Ibuprofen) 800 Mg Tablet, 800 MG PO Q8H Tenofovir Disoproxil Fumarate (Viread) 300 Mg Tablet, 1 TAB PO DAILY, (Reported) Scheduled PRN Oxycodone HCl/Acetaminophen (Oxycodone-Acetaminophen 5-325) 1 Each Tablet, 1 TAB PO TIDP PRN for pain Miscellaneous Medications Pnv No.95/Ferrous Fum/Folic AC ( Vitamins Tablet) 1 Each Tablet, (Reported) Allergies Coded Allergies: shellfish derived (Verified Allergy, Intermediate, 01/25/21) can eat the meat out of shell fish but can not touch shell allergic reaction swollen lips without resp issues BRADY LYNN MD Feb 10, 2021 06:50
[2021-02-10] MEDS: PRENATAL VITAMINS CHEWABLE TABLET PO SCH (08:03)
== END 2021-02-10 14:00 | disposition home or self-care (01) | DRG 540 ==
LOC: M LDI 07:30 → M OBS 12:49
PROVIDERS: ADMIT Specialist; ATTEND Specialist
PROC: 10D00Z1 Extraction of Products of Conception, Low, Open Approach (ICD-10-PCS; principal; 2021-02-08 09:30)
DX: O34.211 Maternal care for low transverse scar from previous cesarean delivery (principal); O09.523 Supervision of elderly multigravida, third trimester; Z37.0 Single live birth; Z3A.39 39 weeks gestation of pregnancy; Z91.013 Allergy to seafood

== ENCOUNTER → 2021-05-02 | Outpatient (CLI) | payer OTHER ==
[~2021-05-02] MED LIST changes: +COLA100C5 PO; +OXYC1TAB23 PO
[2021-05-02 12:57] LABS: ALBUMIN 3.8 GM/DL (3.2-5.2); ALT/SGPT 132 U/L (12-78); BILIRUBIN,DIRECT 0.2 MG/DL (0.0-0.2); RHEUMATOID FACTOR QUANT < 10.0 IU/ML (<15.0); TOTAL PROTEIN 8.1 GM/DL (6.4-8.2)
[2021-05-04 18:10] LABS: ANTINUCLEAR ANTIBODIES DIRECT Negative (Negative); HBV 40 IU/mL (.); Lyme Disease IgG Ab 18 kDa Ban Absent (.); Lyme Disease IgG Ab 23 kDa Ban Absent (.); Lyme Disease IgG Ab 28 kDa Ban Absent (.); Lyme Disease IgG Ab 30 kDa Ban Absent (.); Lyme Disease IgG Ab 39 kDa Ban Absent (.); Lyme Disease IgG Ab 41 kDa Ban Absent (.); Lyme Disease IgG Ab 45 kDa Ban Absent (.); Lyme Disease IgG Ab 58 kDa Ban Present (.); Lyme Disease IgG Ab 66 kDa Ban Absent (.); Lyme Disease IgG Ab 93 kDa Ban Absent (.); Lyme Disease IgG West Blot Int Negative (.); Lyme Disease IgG/IgM Antibodie <0.91 ISR (0.00-0.90); Lyme Disease IgM Ab 23 kDa Ban Absent (.); Lyme Disease IgM Ab 39 kDa Ban Absent (.); Lyme Disease IgM Ab 41 kDa Ban Absent (.); Lyme Disease IgM Ab Quantitati 1.15 index (0.00-0.79); Lyme Disease IgM West Blot Int Negative (.); log10 HBV IU/mL 1.602 (.)
== END ==
LOC: M PLALAB 10:34
PROVIDERS: ATTEND Internal Medicine Infectious Disease
DX: B18.1 Chronic viral hepatitis B without delta-agent (principal)

== ENCOUNTER → 2022-01-30 | Outpatient (CLI) | payer OTHER ==
[~2022-01-30] MED LIST changes: -CEFD1CAP8 PO; +CEFD300C41 PO
[2022-01-30 16:19] LABS: BASO % 0.5 % (0.0-1.0); EOS # 0.1 10^3/uL (0.0-0.5); EOS % 1.1 % (0.0-3.0); HEMATOCRIT 41.2 % (36.0-47.0); HEMOGLOBIN 13.1 g/dl (12.0-15.5); LYMPH # 1.6 10^3/uL (1.5-5.0); MEAN CORPUSCULAR HEMOGLOBIN 28.1 pg (27.0-33.0); MEAN CORPUSCULAR HGB CONC 31.8 g/dl (32.0-36.5); MEAN CORPUSCULAR VOLUME 88.2 fl (80.0-96.0); MONO # 0.3 10^3/uL (0.0-0.8); MONO % 6.6 % (2.0-8.0); NEUTROPHILS # 2.4 10^3/uL (1.5-8.5); NEUTROPHILS % 54.6 % (36.0-66.0); PLATELET COUNT, AUTOMATED 279 10^3/uL (150-450); RED BLOOD COUNT 4.67 10^6/uL (4.00-5.40); WHITE BLOOD COUNT 4.4 10^3/uL (4.0-10.0)
[2022-01-30 16:55] LABS: ALBUMIN 3.8 GM/DL (3.2-5.2); ALT/SGPT 29 U/L (12-78); BILIRUBIN,TOTAL 0.5 MG/DL (0.2-1.0); BLOOD UREA NITROGEN 14 MG/DL (7-18); C REACTIVE PROTEIN QUANTITATIV 0.32 MG/DL (0.00-0.30); CALCIUM LEVEL 8.9 MG/DL (8.5-10.1); CARBON DIOXIDE LEVEL 29 MEQ/L (21-32); CHLORIDE LEVEL 105 MEQ/L (98-107); CREATININE FOR GFR 0.67 MG/DL (0.55-1.30); GLOMERULAR FILTRATION RATE > 60.0 (>60); GLUCOSE, FASTING 89 MG/DL (70-100); POTASSIUM SERUM 4.4 MEQ/L (3.5-5.1); RHEUMATOID FACTOR QUANT < 10.0 IU/ML (<15.0); SODIUM LEVEL 139 MEQ/L (136-145); TOTAL PROTEIN 8.2 GM/DL (6.4-8.2)
== END ==
LOC: M PLAIMG 13:54
PROVIDERS: ATTEND Internal Medicine Infectious Disease
DX: M25.561 Pain in right knee (principal)

== ENCOUNTER → 2022-01-31 | Outpatient (CLI) | payer OTHER | LOC: M RAD 07:24 | PROVIDERS: ATTEND Internal Medicine Infectious Disease | DX: B18.1 Chronic viral hepatitis B without delta-agent (principal) ==

== ENCOUNTER → 2022-03-20 | Outpatient (REF) | payer OTHER | LOC: M PLALAB 10:02 | PROVIDERS: ATTEND Nurse Practitioner Family | DX: Z12.4 Encounter for screening for malignant neoplasm of cervix (principal) ==

== ENCOUNTER → 2022-03-29 | Outpatient (REF) | payer OTHER | LOC: M SFHCPLAZ 09:14 | PROVIDERS: ATTEND Family Medicine | DX: Z53.20 Procedure and treatment not carried out because of patient's decision for unspecified reasons (principal) ==

== ENCOUNTER → 2022-03-29 | Outpatient (CLI) | payer OTHER ==
[2022-03-29 15:35] LABS: HEMOGLOBIN A1c 5.7 %
[2022-03-29 16:38] LABS: CHOLESTEROL RISK RATIO 3.4 (<5); FREE T4 1.09 NG/DL (0.76-1.46); THYROID STIMULATING HORMONE 0.611 uIU/ML (0.358-3.740); TOTAL 25(OH) VITAMIN D 40.9 NG/ML (30.0-100.0)
== END ==
LOC: M PLALAB 09:36
PROVIDERS: ATTEND Student in an Organized Health Care Education/Training Program
DX: Z13.1 Encounter for screening for diabetes mellitus (principal); Z13.220 Encounter for screening for lipoid disorders; Z13.29 Encounter for screening for other suspected endocrine disorder; Z13.21 Encounter for screening for nutritional disorder

== ENCOUNTER 2022-06-01 21:02 | Emergency (ER) | payer OTHER ==
[~2022-06-01] VITALS: Ht 160 cm; Wt 57.3 kg
[2022-06-01] MEDS ORDERED: ACET-683 PO (21:13)
[2022-06-01] MEDS ORDERED: CONTRACEPTIVE TOP (21:14)
[2022-06-01 22:02] LABS: HEMATOCRIT 39.2 % (36.0-47.0); HEMOGLOBIN 12.8 g/dl (12.0-15.5); LYMPH # 0.6 10^3/uL (1.5-5.0); LYMPH % 28.4 % (24.0-44.0); MEAN CORPUSCULAR HEMOGLOBIN 28.2 pg (27.0-33.0); MEAN CORPUSCULAR HGB CONC 32.7 g/dl (32.0-36.5); MEAN CORPUSCULAR VOLUME 86.3 fl (80.0-96.0); MONO # 0.3 10^3/uL (0.0-0.8); MONO % 11.1 % (2.0-8.0); NEUTROPHILS # 1.4 10^3/uL (1.5-8.5); NEUTROPHILS % 60.1 % (36.0-66.0); PLATELET COUNT, AUTOMATED 186 10^3/uL (150-450); RED BLOOD COUNT 4.54 10^6/uL (4.00-5.40); WHITE BLOOD COUNT 2.3 10^3/uL (4.0-10.0)
[2022-06-01 22:19] LABS: HCG, SERUM QUALITATIVE NEGATIVE (NEGATIVE)
[2022-06-01 22:29] LABS: ALBUMIN 3.3 GM/DL (3.2-5.2); ALT/SGPT 22 U/L (12-78); BILIRUBIN,DIRECT 0.2 MG/DL (0.0-0.2); BILIRUBIN,TOTAL 0.8 MG/DL (0.2-1.0); BLOOD UREA NITROGEN 12 MG/DL (7-18); CALCIUM LEVEL 8.2 MG/DL (8.5-10.1); CARBON DIOXIDE LEVEL 30 MEQ/L (21-32); CHLORIDE LEVEL 103 MEQ/L (98-107); CREATININE FOR GFR 0.73 MG/DL (0.55-1.30); GLOMERULAR FILTRATION RATE > 60.0 (>60); GLUCOSE, FASTING 107 MG/DL (70-100); LIPASE 109 U/L (73-393); POTASSIUM SERUM 3.2 MEQ/L (3.5-5.1); SODIUM LEVEL 138 MEQ/L (136-145); TOTAL PROTEIN 7.6 GM/DL (6.4-8.2)
[2022-06-01] MEDS ORDERED: ONDANSETRON 4MG 2ML VIAL IV ONE (23:45)
[2022-06-01] MEDS ORDERED: KETOROLAC 30 MG/ML 1ML VIAL IV ONE (23:45)
[2022-06-01] MEDS ORDERED: NS 1,000 ML IV ONE (23:45)
[2022-06-01] MEDS ORDERED: ISOVUE-370 76% 100ML VIAL As Ordered ONE (23:53)
[2022-06-02] MEDS ORDERED: NS 1,000 ML IV SCH (01:40)
[2022-06-02 12:40] VITALS: BP 98/62
== END 2022-06-02 12:54 | disposition home or self-care (01) ==
LOC: M ED 21:02
DX: K80.50 Calculus of bile duct without cholangitis or cholecystitis without obstruction (principal); B18.0 Chronic viral hepatitis B with delta-agent; Z91.013 Allergy to seafood; Z79.82 Long term (current) use of aspirin; Z79.3 Long term (current) use of hormonal contraceptives
CPT/HCPCS: 74177; 74181; 80048; 80076; 81000; 81015; 83690; 84703; 85025; 87635; 96360; 96361; 96375; 99284; J1885; J2405; Q9967

== ENCOUNTER → 2022-07-24 | Outpatient (CLI) | payer OTHER ==
[~2022-07-24] MED LIST changes: +CONTRACEPTIVE TOP
[2022-07-24 14:13] LABS: ALBUMIN 3.4 G/DL (3.2-5.2); BILIRUBIN,DIRECT 0.1 MG/DL (<0.4); BILIRUBIN,TOTAL 0.5 MG/DL (0.3-1.2); TOTAL PROTEIN 7.9 G/DL (5.7-8.2)
== END ==
LOC: M PLALAB 09:42
PROVIDERS: ATTEND Internal Medicine Infectious Disease
DX: B18.1 Chronic viral hepatitis B without delta-agent (principal)

== ENCOUNTER 2022-12-14 06:11 | Day surgery (SDC) | payer OTHER ==
[~2022-12-14] VITALS: Ht 160 cm; Wt 59.3 kg
[~2022-12-14 06:11] MED LIST changes: +NORE1PAT TOP; +URSO300C3 PO
[2022-12-14] MEDS ORDERED: LR 1,000 ML IV SCH ×2 (06:35→08:30)
[2022-12-14] MEDS ORDERED: ROCURONIUM BROMIDE 50MG/5ML VIAL As Ordered ONE ×2 (07:02→07:45)
[2022-12-14] MEDS ORDERED: propofoL 200 MG/20 ML VIAL As Ordered ONE (07:02)
[2022-12-14] MEDS ORDERED: LIDOCAINE 2% 100MG/5ML SDV (FOR ANES.) As Ordered ONE (07:02)
[2022-12-14] MEDS ORDERED: SUGAMMADEX SODIUM 500 MG/5 ML VIAL (BRIDION) As Ordered ONE (07:02)
[2022-12-14] MEDS ORDERED: ACETAMINOPHEN 1000MG 100ML IV BAG As Ordered ONE (07:02)
[2022-12-14] MEDS ORDERED: KETOROLAC 60MG 2ML VIAL As Ordered ONE (07:02)
[2022-12-14] MEDS ORDERED: ONDANSETRON 4MG 2ML VIAL As Ordered ONE (07:04)
[2022-12-14] MEDS ORDERED: fentaNYL 100 MCG/2 ML INJECTION As Ordered ONE (07:06)
[2022-12-14] MEDS ORDERED: MIDAZOLAM INJ 2MG/2ML VIAL As Ordered ONE (07:06)
[2022-12-14] MEDS ORDERED: BUPIVACAINE/EPIN 0.25% 30ML VIAL As Ordered ONE (07:17)
[2022-12-14] MEDS ORDERED: ESMOLOL INJ 100MG/10ML VIAL As Ordered ONE (07:58)
[2022-12-14] MEDS ORDERED: ONDANSETRON 4MG 2ML VIAL IV PRN (08:30)
[2022-12-14] MEDS ORDERED: oxyCODONE 5MG TAB PO PRN (08:30)
[2022-12-14] MEDS ORDERED: fentaNYL 100 MCG/2 ML INJECTION IV PRN (08:30)
[2022-12-14] MEDS ORDERED: METOCLOPRAMIDE INJ 10MG/2ML VIAL IV PRN (08:30)
[2022-12-14] MEDS: HYDROMORPHONE HCL 0.5 MG/ 0.5 ML SYRINGE IV PRN ×3 (08:58→09:21)
[2022-12-14] MEDS ORDERED: NORCO, ANEXSIA 5/325MG TABLET (HYDROcodone/ACETAMINOPHEN) PO PRN (09:00)
[2022-12-14 11:15] VITALS: BP 112/65
== END 2022-12-14 11:28 | disposition home or self-care (01) ==
LOC: M SDC 06:11
PROVIDERS: ATTEND Surgery
DX: K80.20 Calculus of gallbladder without cholecystitis without obstruction (principal); K82.9 Disease of gallbladder, unspecified; Z86.19 Personal history of other infectious and parasitic diseases; Z91.013 Allergy to seafood; Z79.899 Other long term (current) drug therapy
CPT/HCPCS: 47562; 81025; 88304; J0131; J1100; J1170; J1885; J2250; J2405; J3010; S2900

== ENCOUNTER → 2023-01-30 | Outpatient (CLI) | payer OTHER ==
[2023-01-30 15:54] LABS: BASO % 0.4 % (0.0-1.0); EOS # 0.1 10^3/uL (0.0-0.5); EOS % 1.4 % (0.0-3.0); HEMATOCRIT 42.4 % (36.0-47.0); HEMOGLOBIN 13.5 g/dl (12.0-15.5); LYMPH # 1.7 10^3/uL (1.5-5.0); LYMPH % 33.8 % (24.0-44.0); MEAN CORPUSCULAR HGB CONC 31.8 g/dl (32.0-36.5); MONO # 0.3 10^3/uL (0.0-0.8); MONO % 5.8 % (2.0-8.0); NEUTROPHILS # 2.9 10^3/uL (1.5-8.5); NEUTROPHILS % 58.4 % (36.0-66.0); PLATELET COUNT, AUTOMATED 257 10^3/uL (150-450); RED BLOOD COUNT 4.82 10^6/uL (4.00-5.40)
== END ==
LOC: M PLALAB 13:27
PROVIDERS: ATTEND Internal Medicine Infectious Disease
DX: B18.1 Chronic viral hepatitis B without delta-agent (principal)

== ENCOUNTER → 2023-01-31 | Outpatient (CLI) | payer OTHER | LOC: M WHC 09:36 | PROVIDERS: ATTEND Internal Medicine Infectious Disease | DX: B18.1 Chronic viral hepatitis B without delta-agent (principal) ==

== ENCOUNTER → 2023-04-04 | Outpatient (REF) | payer OTHER | LOC: M SFHCWAGY 13:42 | PROVIDERS: ATTEND Nurse Practitioner Family | DX: Z12.4 Encounter for screening for malignant neoplasm of cervix (principal); Z77.9 Other contact with and (suspected) exposures hazardous to health; B96.89 Other specified bacterial agents as the cause of diseases classified elsewhere ==

== ENCOUNTER → 2023-07-11 | Outpatient (REF) | payer OTHER ==
[~2023-07-11] MED LIST changes: -CEFD300C41 PO; +CEFD300C42 PO
== END ==
LOC: M SFHCPLAZ 09:20
PROVIDERS: ATTEND Student in an Organized Health Care Education/Training Program
DX: Z53.9 Procedure and treatment not carried out, unspecified reason (principal)

== ENCOUNTER → 2023-07-24 | Outpatient (CLI) | payer OTHER, SELFPAY ==
[~2023-07-24] MED LIST changes: +CEFD1CAP9 PO; -CEFD300C42 PO
[2023-07-24 14:38] LABS: BASO % 0.5 % (0.0-1.0); EOS % 0.9 % (0.0-3.0); HEMOGLOBIN 13.5 g/dl (12.0-15.5); LYMPH # 1.2 10^3/uL (1.5-5.0); LYMPH % 26.2 % (24.0-44.0); MEAN CORPUSCULAR HEMOGLOBIN 28.4 pg (27.0-33.0); MEAN CORPUSCULAR HGB CONC 32.1 g/dl (32.0-36.5); MEAN CORPUSCULAR VOLUME 88.2 fl (80.0-96.0); MONO # 0.2 10^3/uL (0.0-0.8); MONO % 5.2 % (2.0-8.0); PLATELET COUNT, AUTOMATED 247 10^3/uL (150-450); RED BLOOD COUNT 4.76 10^6/uL (4.00-5.40); WHITE BLOOD COUNT 4.4 10^3/uL (4.0-10.0)
[2023-07-24 15:18] LABS: ALBUMIN 3.6 G/DL (3.2-5.2); ALKALINE PHOSPHATASE 63 U/L (46-116); ALT/SGPT 28 U/L (7.0-40); AST/SGOT 19 U/L (<34); BILIRUBIN,TOTAL 0.8 MG/DL (0.3-1.2); BLOOD UREA NITROGEN 14 MG/DL (9-23); CARBON DIOXIDE LEVEL 29 MMOL/L (20-31); CHLORIDE LEVEL 106 MMOL/L (98-107); CREATININE FOR GFR 0.58 MG/DL (0.55-1.30); GLOMERULAR FILTRATION RATE > 60.0 (>58); GLUCOSE, FASTING 100 MG/DL (60-100); SODIUM LEVEL 141 MMOL/L (136-145); TOTAL PROTEIN 7.4 G/DL (5.7-8.2)
[2023-07-27 00:06] LABS: HBV See Final Results IU/mL (.)
== END ==
LOC: M PLALAB 09:42
PROVIDERS: ATTEND Internal Medicine Infectious Disease
DX: B18.1 Chronic viral hepatitis B without delta-agent (principal)

== ENCOUNTER → 2024-04-10 | Outpatient (REF) | payer OTHER, SELFPAY ==
[2024-04-16 13:11] LABS: HPV APTIMA Not Detected (Not Detected)
== END ==
LOC: M SFHCWAGY 15:03
PROVIDERS: ATTEND Nurse Practitioner Family
DX: Z12.4 Encounter for screening for malignant neoplasm of cervix (principal)
CPT/HCPCS: 87624; G0123

== ENCOUNTER → 2024-04-22 | Outpatient (CLI) | payer OTHER, SELFPAY ==
[2024-04-22 13:57] LABS: ALBUMIN 3.6 G/DL (3.2-5.2); ALKALINE PHOSPHATASE 64 U/L (46-116); ALT/SGPT 38 U/L (7.0-40); AST/SGOT 21 U/L (<34); BILIRUBIN,DIRECT 0.2 MG/DL (<0.4); BILIRUBIN,TOTAL 0.6 MG/DL (0.3-1.2); TOTAL PROTEIN 7.8 G/DL (5.7-8.2)
[2024-04-24 12:07] LABS: log 10 HBV IU/mL 1.34 Log IU/mL (NOT DETECTED)
== END ==
LOC: M PLALAB 10:27
PROVIDERS: ATTEND Internal Medicine Infectious Disease
DX: B18.1 Chronic viral hepatitis B without delta-agent (principal)

== ENCOUNTER → 2025-04-28 | Outpatient (CLI) | payer SELFPAY ==
[2025-04-28 15:50] LABS: BASO # 0.0 10^3/uL (0.0-0.2); BASO % 0.5 % (0.0-1.0); EOS # 0.1 10^3/uL (0.0-0.5); EOS % 1.9 % (0.0-3.0); LYMPH # 1.2 10^3/uL (1.5-5.0); LYMPH % 28.8 % (24.0-44.0); MONO # 0.3 10^3/uL (0.0-0.8); MONO % 6.1 % (2.0-8.0); NEUTROPHILS # 2.7 10^3/uL (1.5-8.5); NEUTROPHILS % 62.5 % (36.0-66.0); PLATELET COUNT, AUTOMATED 273 10^3/uL (150-450)
[2025-04-28 16:15] LABS: ALT/SGPT 47 U/L (7.0-40); AST/SGOT 28 U/L (<34); CALCIUM LEVEL 9.0 MG/DL (8.5-10.1); CARBON DIOXIDE LEVEL 28 MMOL/L (20-31); CHLORIDE LEVEL 106 MMOL/L (98-107); CREATININE FOR GFR 0.69 MG/DL (0.55-1.30); GLOMERULAR FILTRATION RATE > 90.0 (>58); POTASSIUM SERUM 4.1 MMOL/L (3.5-5.1); SODIUM LEVEL 142 MMOL/L (136-145)
== END ==
LOC: M PLALAB 12:00
PROVIDERS: ATTEND Internal Medicine Infectious Disease
DX: B18.1 Chronic viral hepatitis B without delta-agent (principal)

== ENCOUNTER → 2025-06-30 | Outpatient (CLI) | payer SELFPAY | LOC: M WHC 09:40 | PROVIDERS: ATTEND Obstetrics & Gynecology | DX: Z12.31 Encounter for screening mammogram for malignant neoplasm of breast (principal); R92.333 Mammographic heterogeneous density, bilateral breasts ==